=== PATIENT | male | born 1940 | race Hispanic/Latino ===

== ENCOUNTER → 2018-03-21 | Outpatient (CLI) | payer OTHER ==
[~2018-03-21] MED LIST: GLYCOPYRROLATE 0.2 MG/ML 5 ML VIAL ONE; LIDOCAINE PF 2% 5ML ABBOJECT ONE; NEOSTIGMINE 5MG/5ML SYR IV ONE; ROCURONIUM BROMIDE 10MG/1ML 5ML VL ONE; SUCCINYLCHOLINE 200MG/10ML SYR ONE
== END | disposition home or self-care (01) ==
LOC: SHCH 14:15
PROVIDERS: ATTEND Internal Medicine Cardiovascular Disease
DX: I65.23 Occlusion and stenosis of bilateral carotid arteries (principal); I25.10 Atherosclerotic heart disease of native coronary artery without angina pectoris
CPT/HCPCS: 93880; J0330; J2001; J2710; J3490

== ENCOUNTER → 2020-04-04 | Outpatient (CLI) | payer OTHER | END | disposition home or self-care (01) | LOC: SHCH 08:37 | PROVIDERS: ATTEND Internal Medicine Cardiovascular Disease | DX: R01.1 Cardiac murmur, unspecified (principal); R09.89 Other specified symptoms and signs involving the circulatory and respiratory systems | CPT/HCPCS: 93306; 93880 ==

== ENCOUNTER 2021-10-31 15:32 | Inpatient (IN) | payer OTHER ==
[~2021-10-31] VITALS: Ht 175.3 cm; Wt 74.8 kg
[2021-10-31 17:22] LABS: BASOPHILS % (AUTO) 0.3 % (0.0-5.0); EOSINOPHILS % (AUTO) 2.2 % (0.0-8.0); HEMATOCRIT 45.4 % (42-54); LYMPHOCYTES % (AUTO) 18.4 % (21.0-51.0); MEAN CORPUSCULAR HGB CONC 33.5 g/dL (32.0-36.0); MEAN CORPUSCULAR VOLUME 89.7 fL (79-99); MONOCYTES % (AUTO) 7.2 % (3.0-13.0); NEUTROPHILS % (AUTO) 71.5 % (40.0-77.0); PLATELET COUNT (AUTO) 198 K/uL (130-400); RED BLOOD CELL COUNT(AUTO) 5.06 MIL/uL (4.50-6.20); RED CELL DISTRIBUTION WIDTH 12.7 % (11.0-15.5); WHITE BLOOD COUNT (AUTO) 11.5 K/uL (4.8-10.8)
[2021-10-31 17:33] LABS: CREATININE 1.7 mg/dL (0.5-1.5); POTASSIUM 4.3 mmol/L (3.5-5.1)
[2021-10-31 17:47] LABS: ALBUMIN 3.9 g/dL (3.5-5.0); BILIRUBIN,TOTAL 0.4 mg/dL (0.2-1.0); TOTAL PROTEIN, SERUM 8.1 g/dL (6.0-8.3)
[2021-10-31] MEDS ORDERED: ASPIRIN 325MG TAB ONE (18:28)
[2021-10-31] MEDS ORDERED: NITROGLYCERIN 0.4 MG SL TAB SL ONE (18:28)
[2021-10-31] MEDS ORDERED: ASPIRIN 325MG TAB PO ONE (18:30)
[2021-10-31] MEDS: NITROGLYCERIN 1GM OINT 1 INCH/1GM TD ONE ×2 (18:43→18:46)
[2021-10-31] MEDS ORDERED: ENOXAPARIN SODIUM 80 MG/0.8 ML SQ SCH (21:00)
[2021-10-31] MEDS ORDERED: METOPROLOL TARTRATE 25 MG TAB PO ONE (21:00)
[2021-10-31] MEDS ORDERED: GLUCAGON 1MG KIT 1 MG ML IM PRN (22:30)
[2021-10-31] MEDS ORDERED: DEXTROSE 50%-WATER 50 ML DISP.SYRIN IV PRN (22:30)
[2021-11-01] VITALS (7 sets, daily range): BP systolic 119–137; BP diastolic 66–81
[2021-11-01] MEDS: INSULIN R PO SS1 SQ SCH ×3 (06:14→21:43)
[2021-11-01] MEDS: METOPROLOL TARTRATE 25 MG TAB PO SCH ×2 (10:50→21:40)
[2021-11-01] MEDS: ENOXAPARIN SODIUM 80 MG/0.8 ML SQ SCH (10:50)
[2021-11-01] MEDS: ASPIRIN 81MG CHEW TAB PO SCH (10:50)
[2021-11-01] MEDS ORDERED: METO25TA6 PO (14:31)
[2021-11-01] MEDS ORDERED: GLIP1TAB6 PO (14:31)
[2021-11-01] MEDS ORDERED: TAMS-1 PO (14:31)
[2021-11-01] MEDS ORDERED: PANT40TA PO (14:31)
[2021-11-01] MEDS ORDERED: LISI10TA24 PO (14:31)
[2021-11-01] MEDS ORDERED: EZET-88 PO (14:31)
[2021-11-01] MEDS ORDERED: FENO134C PO (14:31)
[2021-11-02] VITALS (7 sets, daily range): BP systolic 88–132; BP diastolic 53–74
[2021-11-02] MEDS: INSULIN R PO SS1 SQ SCH ×4 (06:25→20:58)
[2021-11-02] MEDS: ENOXAPARIN SODIUM 80 MG/0.8 ML SQ SCH (08:45)
[2021-11-02] MEDS: METOPROLOL TARTRATE 25 MG TAB PO SCH ×2 (08:45→20:58)
[2021-11-02] MEDS: ASPIRIN 81MG CHEW TAB PO SCH (08:45)
[2021-11-03 04:01] VITALS: BP 114/65
[2021-11-03] MEDS: INSULIN R PO SS1 SQ SCH ×4 (05:58→20:31)
[2021-11-03 08:01] LABS: HEMATOCRIT 41.2 % (42-54); MEAN CORPUSCULAR HEMOGLOBIN 29.5 pg (27.0-33.0); MEAN CORPUSCULAR HGB CONC 32.8 g/dL (32.0-36.0); MEAN CORPUSCULAR VOLUME 90.2 fL (79-99); RED BLOOD CELL COUNT(AUTO) 4.57 MIL/uL (4.50-6.20); RED CELL DISTRIBUTION WIDTH 12.9 % (11.0-15.5); WHITE BLOOD COUNT (AUTO) 8.3 K/uL (4.8-10.8)
[2021-11-03 08:14] VITALS: BP 134/71
[2021-11-03 08:22] LABS: CREATININE 1.7 mg/dL (0.5-1.5); POTASSIUM 4.4 mmol/L (3.5-5.1)
[2021-11-03] MEDS: ASPIRIN 81MG CHEW TAB PO SCH (08:34)
[2021-11-03] MEDS: ENOXAPARIN SODIUM 80 MG/0.8 ML SQ SCH (08:34)
[2021-11-03] MEDS: METOPROLOL TARTRATE 25 MG TAB PO SCH ×2 (08:34→20:29)
[2021-11-03] MEDS: 0.9%NACL 1000ML 1,000 ML IV SCH ×2 (09:48→20:13)
[2021-11-03 11:47] VITALS: BP 120/66
[2021-11-03] MEDS ORDERED: IOHEXOL-350 50ML VIAL IV ONE ×3 (13:20→13:22)
[2021-11-03 15:59] VITALS: BP 131/71
[2021-11-03 20:00] VITALS: BP 136/76
[2021-11-04] MEDS: INSULIN R PO SS1 SQ SCH ×4 (07:30→20:59)
[2021-11-04 08:34] VITALS: BP 95/65
[2021-11-04] MEDS: ASPIRIN 81MG CHEW TAB PO SCH (08:41)
[2021-11-04] MEDS: ENOXAPARIN SODIUM 80 MG/0.8 ML SQ SCH (08:41)
[2021-11-04] MEDS: 0.9%NACL 1000ML 1,000 ML IV SCH ×2 (08:42→20:59)
[2021-11-04 09:04] LABS: CREATININE 1.7 mg/dL (0.5-1.5); POTASSIUM 4.5 mmol/L (3.5-5.1)
[2021-11-04 12:22] VITALS: BP 145/74
[2021-11-04] MEDS: METOPROLOL TARTRATE 25 MG TAB PO SCH ×2 (12:23→20:57)
[2021-11-04 16:30] VITALS: BP 135/75
[2021-11-04 20:00] VITALS: BP 140/72
[2021-11-05] VITALS (13 sets, daily range): BP systolic 130–163; BP diastolic 67–95
[2021-11-05 04:14] LABS: HEMATOCRIT 38.3 % (42-54); MEAN CORPUSCULAR HEMOGLOBIN 29.2 pg (27.0-33.0); MEAN CORPUSCULAR HGB CONC 31.6 g/dL (32.0-36.0); MEAN CORPUSCULAR VOLUME 92.5 fL (79-99); RED BLOOD CELL COUNT(AUTO) 4.14 MIL/uL (4.50-6.20); RED CELL DISTRIBUTION WIDTH 12.5 % (11.0-15.5); WHITE BLOOD COUNT (AUTO) 6.4 K/uL (4.8-10.8)
[2021-11-05 04:26] LABS: ALBUMIN 2.7 g/dL (3.5-5.0); BILIRUBIN,TOTAL 0.3 mg/dL (0.2-1.0); CREATININE 1.6 mg/dL (0.5-1.5); POTASSIUM 4.4 mmol/L (3.5-5.1); PROTHROMBIN TIME 10.9 SEC (9.6-11.6); TOTAL PROTEIN, SERUM 6.6 g/dL (6.0-8.3)
[2021-11-05 04:27] LABS: PARTIAL THROMBOPLASTIN TIME 26.8 SEC (26.3-35.5)
[2021-11-05] MEDS: INSULIN R PO SS1 SQ SCH ×3 (06:16→16:30)
[2021-11-05] MEDS ORDERED: BIVALIRUDIN 250 MG/VIAL IV ONE (07:09)
[2021-11-05] MEDS ORDERED: IOHEXOL-350 50ML VIAL IV ONE (07:10)
[2021-11-05] MEDS ORDERED: HEPARIN 10,000 UNIT/10ML (1,000 UNIT/ML) VIAL ONE (07:10)
[2021-11-05] MEDS ORDERED: LIDOCAINE HCL 400MG/20ML VIAL ONE (07:10)
[2021-11-05] MEDS ORDERED: NITROGLYCERIN 50MG VIAL IV ONE (07:10)
[2021-11-05] MEDS ORDERED: IOHEXOL 350 MG/ML 100ML INFUS..BTL IV ONE (07:10)
[2021-11-05] MEDS ORDERED: MIDAZOLAM HCL 1 MG/ML 2ML VIAL ONE (07:29)
[2021-11-05] MEDS ORDERED: FENTANYL CITRATE PF 50 MCG/1 ML 2ML VIAL ONE (07:30)
[2021-11-05] MEDS: ENOXAPARIN SODIUM 80 MG/0.8 ML SQ SCH (09:00)
[2021-11-05] MEDS: METOPROLOL TARTRATE 25 MG TAB PO SCH (09:00)
[2021-11-05] MEDS: ASPIRIN 81MG CHEW TAB PO SCH (09:00)
[2021-11-05] MEDS: 0.9% NACL 500ML IV.SOLN 500 ML IV SCH ×2 (10:00→16:40)
[2021-11-05] MEDS ORDERED: DEXTROSE 50%-WATER 50 ML DISP.SYRIN IV PRN (10:00)
[2021-11-05] MEDS ORDERED: GLUCAGON 1MG KIT 1 MG ML IM PRN (10:00)
[2021-11-05] MEDS: 0.9%NACL 1000ML 1,000 ML IV SCH (11:10)
[2021-11-05 14:41] LABS: CREATININE 1.4 mg/dL (0.5-1.5); POTASSIUM 4.4 mmol/L (3.5-5.1)
== END 2021-11-05 17:35 | disposition home or self-care (01) | DRG 280 ==
LOC: EDH 15:32 → EDHIP 21:52 → 4CH 11-01 01:07
PROVIDERS: ADMIT Internal Medicine; ATTEND Internal Medicine
PROC: 4A023N7 Measurement of Cardiac Sampling and Pressure, Left Heart, Percutaneous Approach (ICD-10-PCS; principal; 2021-11-05)
PROC: B2111ZZ Fluoroscopy of Multiple Coronary Arteries using Low Osmolar Contrast (ICD-10-PCS; 2021-11-05)
PROC: B41F1ZZ Fluoroscopy of Right Lower Extremity Arteries using Low Osmolar Contrast (ICD-10-PCS; 2021-11-05)
PROC: B3101ZZ Fluoroscopy of Thoracic Aorta using Low Osmolar Contrast (ICD-10-PCS; 2021-11-05)
DX: T82.855A Stenosis of coronary artery stent, initial encounter (principal); I21.4 Non-ST elevation (NSTEMI) myocardial infarction; I50.31 Acute diastolic (congestive) heart failure; N17.9 Acute kidney failure, unspecified; I13.0 Hypertensive heart and chronic kidney disease with heart failure and stage 1 through stage 4 chronic kidney disease, or unspecified chronic kidney disease; E78.00 Pure hypercholesterolemia, unspecified; E78.5 Hyperlipidemia, unspecified; I25.10 Atherosclerotic heart disease of native coronary artery without angina pectoris; I49.3 Ventricular premature depolarization; N18.30 Chronic kidney disease, stage 3 unspecified; M19.90 Unspecified osteoarthritis, unspecified site; E11.22 Type 2 diabetes mellitus with diabetic chronic kidney disease; Y83.8 Other surgical procedures as the cause of abnormal reaction of the patient, or of later complication, without mention of misadventure at the time of the procedure; Y92.89 Other specified places as the place of occurrence of the external cause; I25.2 Old myocardial infarction; Z95.1 Presence of aortocoronary bypass graft
CPT/HCPCS: 36415; 71045; 78452; 80048; 80053; 82550; 82948; 83874; 84484; 85025; 85027; 85610; 85730; 93005; 93017; 93306; 93356; 93455; 93880; 96374; 99156; 99157; 99291; A9500; C1760; C1769; C1894; G0378; J0583; J1644; J1650; J1815; J2250; J3010; J3490; J7030; Q9967

== ENCOUNTER 2022-01-26 07:09 | Day surgery (SDC) | payer OTHER ==
[2022-01-21 10:27] LABS: BASOPHILS % (AUTO) 0.6 % (0.0-5.0); EOSINOPHILS % (AUTO) 13.5 % (0.0-8.0); HEMATOCRIT 38.2 % (42-54); LYMPHOCYTES % (AUTO) 24.4 % (21.0-51.0); MEAN CORPUSCULAR HEMOGLOBIN 29.5 pg (27.0-33.0); MEAN CORPUSCULAR HGB CONC 32.5 g/dL (32.0-36.0); MEAN CORPUSCULAR VOLUME 90.7 fL (79-99); MONOCYTES % (AUTO) 9.9 % (3.0-13.0); NEUTROPHILS % (AUTO) 51.2 % (40.0-77.0); PLATELET COUNT (AUTO) 206 K/uL (130-400); RED BLOOD CELL COUNT(AUTO) 4.21 MIL/uL (4.50-6.20); RED CELL DISTRIBUTION WIDTH 13.5 % (11.0-15.5)
[2022-01-21 10:36] LABS: PROTHROMBIN TIME 10.9 SEC (9.6-11.6)
[2022-01-21 10:37] LABS: PARTIAL THROMBOPLASTIN TIME 25.6 SEC (26.3-35.5)
[2022-01-21 10:42] LABS: APPEARANCE,URINE CLEAR (CLEAR); BILIRUBIN,URINE NEGATIVE (NEGATIVE); COLOR,URINE YELLOW (YELLOW); GLUCOSE, URINE (UA) 100 mg/dL (NEGATIVE); KETONES,URINE NEGATIVE (NEGATIVE); LEUKOCYTE ESTERASE ,URINE NEGATIVE (NEGATIVE); NITRATE,URINE NEGATIVE (NEGATIVE); OCCULT BLOOD,URINE TRACE-INTACT (NEGATIVE); PROTEIN,URINE TRACE mg/dL (NEGATIVE); UROBILINOGEN,URINE 0.2 mg/dL (0.2-1.0)
[2022-01-21 11:18] LABS: BACTERIA,URINE Rare /HPF (None Seen); RBC,URINE 0-1 /HPF (0-1); SQUAMOUS EPITHELIAL CELL,UR Rare /HPF (0-2); WBC,URINE 0-1 /HPF (0-1)
[~2022-01-26] VITALS: Ht 175.3 cm; Wt 75.7 kg
[2022-01-26] VITALS (15 sets, daily range): BP systolic 119–178; BP diastolic 72–89
[~2022-01-26 07:09] MED LIST changes: +0.9% NACL 500ML IV.SOLN 500 ML IV SCH; +0.9%NACL 1000ML 1,000 ML IV ONE; +ASPI-1443 PO; +CLOP75TA32 PO; +FENO134C21 PO; +GLIP1TAB6 PO; -GLYCOPYRROLATE 0.2 MG/ML 5 ML VIAL ONE; -LIDOCAINE PF 2% 5ML ABBOJECT ONE; +LISI10TA24 PO; -NEOSTIGMINE 5MG/5ML SYR IV ONE; +PANT40TA PO; -ROCURONIUM BROMIDE 10MG/1ML 5ML VL ONE; +ROSU40TA21 PO; -SUCCINYLCHOLINE 200MG/10ML SYR ONE; +TAMS-1 PO
[2022-01-26] MEDS ORDERED: HEPARIN 10,000 UNIT/10ML (1,000 UNIT/ML) VIAL ONE (10:45)
[2022-01-26] MEDS ORDERED: SODIUM BICARB 50MEQ 50ML VIAL 50 ML ONE (10:45)
[2022-01-26] MEDS ORDERED: IOHEXOL-350 50ML VIAL IV ONE (10:45)
[2022-01-26] MEDS ORDERED: MIDAZOLAM HCL 1 MG/ML 2ML VIAL ONE ×2 (10:46→11:28)
[2022-01-26] MEDS ORDERED: IOHEXOL 350 MG/ML 100ML INFUS..BTL IV ONE (10:46)
[2022-01-26] MEDS ORDERED: MEPERIDINE-PF 50 MG/ML SYG ONE (10:46)
[2022-01-26] MEDS ORDERED: LIDOCAINE HCL 400MG/20ML VIAL ONE (10:47)
[2022-01-26] MEDS ORDERED: BIVALIRUDIN 250 MG/VIAL IV ONE (11:36)
[2022-01-26] MEDS ORDERED: CLOPIDOGREL 75MG TAB ONE (12:34)
[2022-01-26] MEDS ORDERED: ASPIRIN 81 MG EC TAB ONE (12:34)
[2022-01-26] MEDS ORDERED: GLUCAGON 1MG KIT 1 MG ML IM PRN (13:00)
[2022-01-26] MEDS ORDERED: DEXTROSE 50%-WATER 50 ML DISP.SYRIN IV PRN (13:00)
[2022-01-26] MEDS ORDERED: 0.9%NACL 1000ML 1,000 ML IV SCH (13:00)
[2022-01-26] MEDS ORDERED: INSULIN HUMULIN R 100 UNIT/ML 3ML SQ SCH (16:30)
== END 2022-01-26 18:45 | disposition home or self-care (01) ==
LOC: DAH 07:09
PROVIDERS: ATTEND Internal Medicine Cardiovascular Disease
DX: I25.118 Atherosclerotic heart disease of native coronary artery with other forms of angina pectoris (principal); I12.9 Hypertensive chronic kidney disease with stage 1 through stage 4 chronic kidney disease, or unspecified chronic kidney disease; E11.22 Type 2 diabetes mellitus with diabetic chronic kidney disease; N18.30 Chronic kidney disease, stage 3 unspecified; Z95.1 Presence of aortocoronary bypass graft; E78.5 Hyperlipidemia, unspecified; M19.90 Unspecified osteoarthritis, unspecified site; Z96.653 Presence of artificial knee joint, bilateral; Z79.82 Long term (current) use of aspirin; Z79.84 Long term (current) use of oral hypoglycemic drugs; Z79.899 Other long term (current) drug therapy
CPT/HCPCS: 36415 ×2; 71045; 80048; 81001; 82948 ×2; 85025; 85347 ×2; 85610; 85730; 93005; 93452; A4215; A4216; A4221; A4222; A4223 ×3; A4606; A4663; C1725; C1760; C1769; C1874 ×2; C1887; C1894; C9600; J1644 ×2; J2175; J2250 ×2; J3490 ×2; J7030; Q9965; Q9967 ×2; 99156; 99157; J0583

== ENCOUNTER → 2024-06-14 | Outpatient (CLI) | payer OTHER ==
[~2024-06-14] MED LIST changes: -0.9% NACL 500ML IV.SOLN 500 ML IV SCH; -0.9%NACL 1000ML 1,000 ML IV ONE; -ROSU40TA21 PO; +ROSU40TA70 PO
== END | disposition home or self-care (01) ==
LOC: RAH 09:54
PROVIDERS: ATTEND Internal Medicine
DX: I08.1 Rheumatic disorders of both mitral and tricuspid valves (principal); R60.9 Edema, unspecified; R06.02 Shortness of breath
CPT/HCPCS: 93306

== ENCOUNTER → 2024-06-15 | Outpatient (CLI) | payer OTHER | END | disposition home or self-care (01) | LOC: RAH 13:26 | PROVIDERS: ATTEND Internal Medicine | DX: R60.9 Edema, unspecified (principal) | CPT/HCPCS: 93970 ==

== ENCOUNTER → 2024-06-22 | Outpatient (CLI) | payer OTHER | END | disposition home or self-care (01) | LOC: SHCH 10:21 | PROVIDERS: ATTEND Internal Medicine Cardiovascular Disease | DX: I65.23 Occlusion and stenosis of bilateral carotid arteries (principal) | CPT/HCPCS: 93880 ==

== ENCOUNTER → 2024-06-28 | Outpatient (CLI) | payer OTHER | END | disposition home or self-care (01) | LOC: LAB 11:31 | PROVIDERS: ATTEND Physician Assistant | DX: I10 Essential (primary) hypertension (principal) | CPT/HCPCS: 36415; 83880 ==

== ENCOUNTER → 2024-08-31 | Outpatient (CLI) | payer OTHER ==
[~2024-08-31] MED LIST changes: -ROSU40TA70 PO; +ROSU40TA88 PO
== END | disposition home or self-care (01) ==
LOC: SHCH 13:11
PROVIDERS: ATTEND Internal Medicine Cardiovascular Disease
DX: I87.2 Venous insufficiency (chronic) (peripheral) (principal)
CPT/HCPCS: 93970

== ENCOUNTER → 2024-09-01 | Outpatient (CLI) | payer OTHER ==
[2024-09-01] MEDS: REGADENOSON 0.4 MG/5 ML PF SYG IVP ONE (11:23)
== END | disposition home or self-care (01) ==
LOC: SHCH 08:11
PROVIDERS: ATTEND Internal Medicine Cardiovascular Disease
DX: I25.10 Atherosclerotic heart disease of native coronary artery without angina pectoris (principal)
CPT/HCPCS: 78452; 93017; J2785; A9500 ×2

== ENCOUNTER → 2025-01-04 | Outpatient (CLI) | payer OTHER ==
[~2025-01-04] MED LIST changes: +FAMO20TA8 PO; -FENO134C21 PO; -LISI10TA24 PO; +METO-408 PO; +PIOG30TA70 PO; +PRAV40TA3 PO; -ROSU40TA88 PO
[2025-01-04 12:15] LABS: BASOPHILS # (AUTO) 0.05 K/uL (0.00-0.20); BASOPHILS % (AUTO) 0.8 % (0.0-5.0); EOSINOPHILS # (AUTO) 0.67 K/uL (0.00-0.70); EOSINOPHILS % (AUTO) 10.4 % (0.0-8.0); HEMATOCRIT 35.7 % (42-54); IMMATURE GRANULOCYTE ABSOLUTE 0.02 K/uL (0-1); LYMPHOCYTES # (AUTO) 1.4 K/uL (1.0-4.8); LYMPHOCYTES % (AUTO) 21.8 % (21.0-51.0); MEAN CORPUSCULAR HEMOGLOBIN 27.2 pg (27.0-33.0); MEAN CORPUSCULAR HGB CONC 31.7 g/dL (32.0-36.0); MEAN CORPUSCULAR VOLUME 85.8 fL (79-99); MONOCYTES # (AUTO) 0.6 K/uL (0.1-1.0); MONOCYTES % (AUTO) 8.7 % (3.0-13.0); NEUTROPHILS # (AUTO) 3.8 K/uL (1.8-7.7); PLATELET COUNT (AUTO) 244 K/uL (130-400); RED BLOOD CELL COUNT(AUTO) 4.16 MIL/uL (4.50-6.20); RED CELL DISTRIBUTION WIDTH 13.9 % (11.0-15.5); WHITE BLOOD COUNT (AUTO) 6.5 K/uL (4.8-10.8)
[2025-01-04 12:46] LABS: ALBUMIN 3.2 g/dL (3.5-5.0); BILIRUBIN,TOTAL 0.3 mg/dL (0.2-1.0); CREATININE 1.6 mg/dL (0.5-1.3); POTASSIUM 4.8 mmol/L (3.5-5.1); T4 (THYROXINE) 5.6 ug/dL (4.7-13.3); THYROID STIMULATING HORMONE 3.75 uIU/mL (0.36-3.74); TOTAL PROTEIN, SERUM 6.6 g/dL (6.0-8.3)
== END | disposition home or self-care (01) ==
LOC: LAB 09:30
PROVIDERS: ATTEND Internal Medicine Cardiovascular Disease
DX: I10 Essential (primary) hypertension (principal); E78.5 Hyperlipidemia, unspecified; Z79.899 Other long term (current) drug therapy
CPT/HCPCS: 36415; 80053; 80061; 83036; 83880; 84436; 84443; 84479; 85025

== ENCOUNTER → 2025-02-05 | Outpatient (CLI) | payer OTHER ==
[2025-02-05 13:04] LABS: ALBUMIN 3.3 g/dL (3.5-5.0); BILIRUBIN,TOTAL 0.3 mg/dL (0.2-1.0); CREATININE 1.8 mg/dL (0.5-1.3); MAGNESIUM 1.9 mg/dL (1.80-2.40); POTASSIUM 4.4 mmol/L (3.5-5.1)
== END | disposition home or self-care (01) ==
LOC: LAB 10:40
PROVIDERS: ATTEND Internal Medicine Cardiovascular Disease
DX: I10 Essential (primary) hypertension (principal); I25.10 Atherosclerotic heart disease of native coronary artery without angina pectoris; E78.5 Hyperlipidemia, unspecified
CPT/HCPCS: 36415; 80053; 83735; 83880